=== PATIENT | male | born 1995 | race African-American/Black ===

== ENCOUNTER 2023-12-10 07:14 | Emergency (ER) | payer SELFPAY ==
[2023-12-10 07:18] VITALS: BP 132/74
--- NOTE | 2023-12-10 08:25 | ED.GENMED ---
History of Present Illness
General
Chief Complaint: Skin Surface Trauma
Time Seen by Provider: 12/10/23 08:24
Travel History
Have you had any contact with someone who has COVID-19?: No
Do you have any symptoms of coronavirus? Fever > 100 degrees, chills, cough, shortness of breath, sore throat, loss of taste or smell, muscle aches, or headache?: No
History of Present Illness
History of Present Illness:
HPI: Patient presents due to concerns of pain and swelling at the right fourth digit. The symptoms started yesterday. He has had similar episode in the past and states that he had a needle drainage and was placed on Bactrim which successfully
helped. He denies any systemic symptoms.
EXAM:
GENERAL: Well appearing in no distress
HEENT: Moist oral mucosa
CARDIOVASCULAR: No murmurs, borderline tachycardic heart rate (rate on my examination was 96), regular rhythm, No chest wall tenderness
NEUROLOGIC: Excellent strength all extremities, no coordination deficits
PSYCHIATRIC: Appropriate mental status, normal insight and judgement
EXTREMITIES: At the right fourth digit, there is evidence of paronychia, there is also questionable evidence of onychomycosis over the nail itself, there is no suggestion for flexor tenosynovitis
SKIN: See above
TIME OF INITIAL ENCOUNTER: 8:30 AM
NUMBER AND COMPLEXITY OF PROBLEMS ADDRESSED AT THE ENCOUNTER
� Chronic conditions affecting care: Former smoker, asthma, has had VT
� Acute Exacerbation and/or Progression of Chronic Illness: This is an acute problem but has had similar episode in the past
� Differential Diagnosis includes: Paronychia, flexor tenosynovitis, cellulitis
AMOUNT AND/OR COMPLEXITY OF DATA TO BE REVIEWED AND ANALYZED
� I performed an independent evaluation of and my interpretation is:
EKG:
CT:
X-rays:
Laboratory Studies:
Other:
� Review of other/old records: I reviewed records, I reviewed labs from August 2022�at that time leukocytosis was noted
� Clinical information was obtained by an independent historian: None needed
� Prescriptions/Medications Considered but not given:
� Further testing considered but not performed: No indication for imaging studies at this time
RISK OF COMPLICATIONS AND/OR MORBIDITY OR MORTALITY OF PATIENT MANAGEMENT
� Social determinants of health affecting care: At home, no longer smokes.
� Discussion with other providers:
� Escalation of care including admission/observation vs risk of discharge considered: We performed incision with scalpel for paronychia without much success but then he also told me he has had a needle aspiration from the dorsal
aspect�we tried this also with no significant amount of pus. I recommended soaks and I also prescribed antibiotics. Prescribed Bactrim as he has responded to this well in the past.
Past History
Past History
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
ED Past Surgical History: Cardiac (VT ablation)
Social History
Tobacco: Smoker
Alcohol: Occasional
Drug: Marijuana and Narcotics
Personal: Single
Living: with family
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
Family History
Family History: Other (Noncontributory)
Phy Exam
Physical Exam
Physical Exam:
See HPI
Course
Orders/Labs/Results
Orders:
Orders
12/10/23 08:42
Sulfamethox./Trimethoprim Ds [Bactrim Ds 800 mg/160 mg] 1 tablet PO NOW STA
Vital Signs
Pulse: 96
Initial and Last Documented VS:
Initial Vital Signs
Temp Pulse Resp BP Pulse Ox
97.9 F 127 18 132/74 98
12/10/23 07:18 12/10/23 07:18 12/10/23 07:18 12/10/23 07:18 12/10/23 07:18
Last Documented Vital Signs
Temp Pulse Resp BP Pulse Ox
97.9 F 96 18 132/74 98
12/10/23 07:18 12/10/23 08:47 12/10/23 07:18 12/10/23 07:18 12/10/23 07:18
*Critical Care Note
Total Time (30-74mins, 75-104mins- exclusive of procedures): Not Applicable
ED Attending Note
-
Portions of this chart may have been created with voice recognition software.� Occasional wrong word or��sound alike� substitutions may have occurred due to the inherent limitations of voice recognition software.
Discharge Plan
Departure
Patient Disposition: Home (Routine Discharge)
Date of Disposition: 12/10/23
Time of Disposition: 08:43
Patient with high blood pressure during this ER visit?: Yes
Discharge Problem:
Paronychia
Instructions: Paronychia ED
Prescriptions:
New
sulfamethoxazole-trimethoprim [Bactrim DS] 800-160 mg tablet
1 tab PO BID Qty: 14 0RF
No Action
Epidiolex 1 UNIT solution
1 unit PO PRN PRN (Reason: medical)
pantoprazole [Protonix] 40 mg tablet,delayed release (DR/EC)
40 mg PO DAILY Qty: 30 0RF
penicillin V potassium 500 mg tablet
500 mg PO QID 7 Days Qty: 28 0RF
potassium chloride 10 mEq tablet extended release
10 meq PO BID Qty: 10 0RF
Activity Restrictions/Additional Instructions:
Your symptoms appear to be related to paronychia. We did make openings to help allow pus to come out later. I sent a prescription for Bactrim to your pharmacy. Return here if worse.
Interventions
Interventions:
*Risk Screen - Suicide Last Done: 12/10/23 07:18
*Neglect/Abuse Screening Last Done: 12/10/23 07:18
*ED COVID-19 Vaccine History Last Done: 12/10/23 07:18
Discharge Date and Time
Print Language: WOLOF
[2023-12-10] MEDS: BACTRIM DS 800 MG/160 MG 1 TABLET PO (09:23)
[2023-12-10] MEDS: MOTRIN 600 MG PO (09:27)
[2023-12-10 09:29] VITALS: BP 120/71
== END 2023-12-10 09:30 | disposition home or self-care (01) ==
LOC: EMR 07:14
PROVIDERS: EMERGENCY PHYSICIAN Emergency Medicine
DX: L03.011 Cellulitis of right finger (principal); F17.200 Nicotine dependence, unspecified, uncomplicated; R03.0 Elevated blood-pressure reading, without diagnosis of hypertension
CPT/HCPCS: 99283

== ENCOUNTER 2024-10-04 22:04 | Emergency (ER) | payer OTHER, SELFPAY ==
[2024-10-04 22:07] VITALS: BP 116/78
--- NOTE | 2024-10-05 00:32 | ED.GENMED ---
History of Present Illness
General
Chief Complaint: Musculo-Skeletal Complaint
Source: patient and previous hospital records
Exam Limitations: none
Time Seen by Provider: 10/05/24 00:04
Nursing documentation reviewed up to this point in time: agreed with
History of Present Illness
History of Present Illness:
This is a 29-year-old homeless gentleman who has walked into the ED with complaints of right ankle pain. Admits to 'running around a lot today' but denies insightful injury. He denies twisting, denies fall. He does admit to wearing new hiking
boots. He denies weakness nor numbness. Has not taken anything for discomfort.
According to nursing staff, patient often visits the ED waiting room to sleep, rarely requesting ED evaluation.
Upon review of records, patient evaluated in this ED June 2023 for very similar right ankle pain, at that time after a mild twisting injury. Exam was unremarkable. Was provided ibuprofen. No imaging required.
Past History
Past History
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
ED Past Surgical History: Cardiac (VT ablation)
Social History
Tobacco: Smoker
Alcohol: Occasional
Drug: Marijuana and Narcotics
Personal: Single
Living: with family
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
Family History
Family History: Other (Noncontributory)
Phy Exam
Physical Exam
Physical Exam:
PHYSICAL EXAMINATION:
General: 29-year-old male appears his stated age, sleeping on exam stretcher. Awakens easily but readily falls asleep multiple times during initial evaluation. Overall appears in no acute distress.
Neuro: alert and oriented. no focal neurological deficits. Gait is blas and steady without limp
Psychiatric: Preferably sleeps. Once awake cooperative.
Musculoskeletal: [Right ankle without soft tissue swelling, no appreciable tenderness, full range of motion without difficulty nor pain. No tenderness to the foot. Peripheral pulses are full and equal bilaterally.
Sensation and strength intact. There is no tenderness to the lower leg nor knee. Gait is blas and steady.]
Course
Orders/Labs/Results
Orders:
Orders
10/05/24 00:32
Ibuprofen [Motrin] 600 mg PO NOW STA
Vital Signs
Initial and Last Documented VS:
Initial Vital Signs
Temp Pulse Resp BP Pulse Ox
98.2 F 105 16 116/78 99
10/04/24 22:07 10/04/24 22:07 10/04/24 22:07 10/04/24 22:07 10/04/24 22:07
Last Documented Vital Signs
Temp Pulse Resp BP Pulse Ox
98.2 F 105 16 116/78 99
10/04/24 22:07 10/04/24 22:07 10/04/24 22:07 10/04/24 22:07 10/04/24 22:07
MDM/Problems Addressed
Differential Diagnosis Includes:
Patient presents with right ankle pain, admits to significant walking today but denies injury.
Overall exam is benign without appreciable tenderness to palpation, no soft tissue swelling. He is wearing newer appearing hiking boots, laced and tied somewhat tight around his ankle. This could certainly be a cause for his ankle discomfort and
recommend he loosen the laces.
Will treat conservatively with a dose of ibuprofen. At this point no indication for imaging.
Recommend prompt follow-up with PCP for recheck.
Concern for potential housing instability. Patient reportedly resides with his father nearby.
*Pulse Oximetry
Patient hypoxic: no
*Critical Care Note
Total Time (30-74mins, 75-104mins- exclusive of procedures): Not Applicable
ED Attending Note
-
Portions of this chart may have been created with voice recognition software.� Occasional wrong word or��sound alike� substitutions may have occurred due to the inherent limitations of voice recognition software.
Discharge Plan
Departure
Patient Disposition: Home (Routine Discharge)
Date of Disposition: 10/05/24
Time of Disposition: 00:32
Patient with high blood pressure during this ER visit?: No
Condition: Good
Discharge Problem:
Mild sprain of right ankle
Instructions: Ankle sprain - ED discharge instructions
Prescriptions:
No Action
Epidiolex 1 UNIT solution
1 unit PO PRN PRN (Reason: medical)
pantoprazole [Protonix] 40 mg tablet,delayed release (DR/EC)
40 mg PO DAILY Qty: 30 0RF
penicillin V potassium 500 mg tablet
500 mg PO QID 7 Days Qty: 28 0RF
potassium chloride 10 mEq tablet extended release
10 meq PO BID Qty: 10 0RF
sulfamethoxazole-trimethoprim [Bactrim DS] 800-160 mg tablet
1 tab PO BID Qty: 14 0RF
Referrals:
Nii Olivia MD [Family Provider] - Call in 1-3 days for appt
Interventions
Interventions:
*Risk Screen - Suicide Last Done: 10/04/24 22:07
*General Assessment Last Done: 10/04/24 22:07
*Neglect/Abuse Screening Last Done: 10/04/24 22:07
*ED COVID-19 Vaccine History Last Done: 10/04/24 22:07
Discharge Date and Time
Print Language: BELIZEAN
[2024-10-05] MEDS: MOTRIN 600 MG PO (02:04)
[2024-10-05 02:06] VITALS: BP 120/68
== END 2024-10-05 06:55 | disposition home or self-care (01) ==
LOC: EMR 22:04
PROVIDERS: EMERGENCY PHYSICIAN Emergency Medicine; FAMILY PHYSICIAN Internal Medicine
DX: S93.401A Sprain of unspecified ligament of right ankle, initial encounter (principal); X58.XXXA Exposure to other specified factors, initial encounter; Z59.00 Homelessness unspecified; F17.200 Nicotine dependence, unspecified, uncomplicated
CPT/HCPCS: 99283

== ENCOUNTER 2024-11-08 02:27 | Emergency (ER) | payer OTHER, SELFPAY ==
[2024-11-08 02:28] VITALS: BP 114/78
[2024-11-08 02:53] VITALS: BMI 23.0
--- NOTE | 2024-11-08 02:57 | ED.GENMED ---
History of Present Illness
General
Chief Complaint: Abdominal Symptoms
Source: patient
Exam Limitations: none
Time Seen by Provider: 11/08/24 02:32
Nursing documentation reviewed up to this point in time: agreed with
History of Present Illness
History of Present Illness:
2o-year-old male presents to the emergency department with acute on chronic right flank pain. He said that he thought he had some blood in the urine after drinking, beginning an hour ago. He states that his abdominal pain has resolved and he has
hematuria any longer. Patient reluctant to give a more detailed history.
Past History
Past History
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
ED Past Surgical History: Cardiac (VT ablation)
Social History
Tobacco: Smoker
Alcohol: Occasional
Drug: Marijuana and Narcotics
Personal: Single
Living: with family
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
Family History
Family History: Other (Noncontributory)
Review of Systems
Review of Systems
Allergies reviewed?: Yes
All Other Systems: ROS reviewed and negative except as documented in HPI and ROS
Constitutional: Reports no symptoms
EENT: Reports no symptoms
Respiratory: Reports no symptoms
Cardiac: Reports no symptoms
ABD/GI: Reports abdominal pain
: Reports flank pain and bleeding
Musculoskeletal: Reports no symptoms
Skin: Reports no symptoms
Neurological: Reports no symptoms
Endocrine: Reports no symptoms
Hematologic/Lymphatic: Reports no symptoms
Psychiatric: Reports no symptoms
Phy Exam
General Physical Exam
General Presentation: well appearing and no apparent distress
General Skin: warm and dry
General Habitus: normal
General Mental: alert
General Hydration: appears well hydrated
ENT Exam
ENT Exam: EOMI, pharynx normal, neck supple and normocephalic
Eye Exam
Eye Exam: PERRL, cornea clear and conjunctiva normal
Cardiovascular Exam
Cardiovascular Exam: regular rate/rhythm, no edema, no murmur and normal peripheral pulses
Pulmonary Exam
Pulmonary Exam: lungs clear, no respiratory distress, no rales, no crackles, no rhonchi, no stridor, no wheezing and no cough
Gastrointestinal Exam
Gastrointestinal Exam: normal bowel sounds, non tender, soft, no organomegaly, no pulsatile mass and non distended
Neurological Exam
Neurological Exam: alert, oriented x3, no motor deficits and speech normal
Musculoskeletal Exam
Musculoskeletal Exam: full ROM and no edema
Skin Exam
Skin Exam: normal color, warm/dry, no rash and no petechia
Psychiatric Exam
Psychiatric Exam: normal mood/affect
Course
Orders/Labs/Results
Orders:
Orders
11/08/24 04:30
Urinalysis Reflex To Culture Urgent
Date Specimen was Collected: 11/08/24
Time Specimen was Collected: 02:40
Urine Microscopic Reflex Cult Urgent
Urine Culture Urgent
SNEHA Source: U
Specimen Description:
Date Specimen was Collected: 11/08/24
Time Specimen was Collected: 02:40
Abnormal Lab Results
11/08/24
04:30
Ur Occult Blood Reflex 2+ A
(Negative)
Leukocyte Esterase Rfl 1+ A
(Negative)
Urine RBC 3-6 A /HPF
(0-2)
Urine Bacteria (Reflex) Few A
(Negative)
Vital Signs
Initial and Last Documented VS:
Initial Vital Signs
Temp Pulse Resp BP Pulse Ox
97.4 F 84 20 114/78 98
11/08/24 02:28 11/08/24 02:28 11/08/24 02:28 11/08/24 02:28 11/08/24 02:28
Last Documented Vital Signs
Temp Pulse Resp BP Pulse Ox
97.4 F 73 20 99/62 100
11/08/24 02:28 11/08/24 05:17 11/08/24 02:28 11/08/24 05:17 11/08/24 05:17
*Critical Care Note
Total Time (30-74mins, 75-104mins- exclusive of procedures): Not Applicable
Update Note
Update Note:
Patient still has not given us a urine sample.
Patient gave a urine sample and it showed some hematuria. Patient refused to get an ultrasound or an x-ray
Patient wishes to be discharged.
ED Attending Note
-
Portions of this chart may have been created with voice recognition software.� Occasional wrong word or��sound alike� substitutions may have occurred due to the inherent limitations of voice recognition software.
Discharge Plan
Departure
Patient Disposition: Against Medical Advice
Date of Disposition: 11/08/24
Time of Disposition: 05:17
Discharge Problem:
Hematuria
Instructions: Clear Liquid Diet, Abdominal pain in adults - Discharge instructions
Prescriptions:
No Action
Epidiolex 1 UNIT solution
1 unit PO PRN PRN (Reason: medical)
Risperdal
buspirone
Referrals:
Nii Olivia MD [Family Provider] -
Interventions
Interventions:
*Risk Screen - Suicide Last Done: 11/08/24 02:28
*General Assessment Last Done: 11/08/24 02:54
*Neglect/Abuse Screening Last Done: 11/08/24 02:28
*ED- Fall Risk Assessment Last Done: 11/08/24 02:54
*ED COVID-19 Vaccine History Last Done: 11/08/24 05:02
*Nursing Disposition Last Done: 11/08/24 05:25
RL-Eabgrv-Phtlljmouh Assessment Last Done: 11/08/24 02:54
Discharge Date and Time
Discharge Date/Time: 11/08/24 05:25
Print Language: KINYARWANDA
[2024-11-08 04:41] LABS: Urine Albumin Negative (Neg - Trace); Urine Bilirubin Negative (Negative); Urine Character Clear (Clear); Urine Color Yellow; Urine Glucose Negative (Negative); Urine Ketone Negative (Negative); Urine Leukocyte 1+ (Negative); Urine Nitrite Negative (Negative); Urine Occult Blood 2+ (Negative); Urine Urobilinogen Negative (Neg - 1+)
[2024-11-08 05:17] VITALS: BP 99/62
[2024-11-08 06:14] LABS: Urine Bacteria Few (Negative); Urine Squamous Cell 0-2 /LPF (Few); Urine White Cell 0-2 /HPF (0-5)
== END 2024-11-08 05:25 | disposition left against medical advice (07) ==
LOC: EMR 02:27
PROVIDERS: EMERGENCY PHYSICIAN Student in an Organized Health Care Education/Training Program; FAMILY PHYSICIAN Internal Medicine
DX: R31.9 Hematuria, unspecified (principal); R10.9 Unspecified abdominal pain; I47.20 Ventricular tachycardia, unspecified; F41.9 Anxiety disorder, unspecified; J45.909 Unspecified asthma, uncomplicated; K90.0 Celiac disease; F17.200 Nicotine dependence, unspecified, uncomplicated; Z59.00 Homelessness unspecified; Z79.899 Other long term (current) drug therapy; Z91.013 Allergy to seafood
CPT/HCPCS: 99283; 81003; 81015; 87086

== ENCOUNTER 2024-12-05 11:00 | Emergency (ER) | payer OTHER, SELFPAY ==
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
[2024-12-05 14:32] LABS: Amphetamines Negative (Negative); Barbiturates Negative (Negative); Benzodiazepines Negative (Negative); Buprenorphine Negative (Negative); Cocaine Negative (Negative); Marijuana Negative (Negative); Methadone Negative (Negative); Methamphetamines Negative (Negative); Opiates Negative (Negative); Phencyclidine Negative (Negative); Tricyclic Antidepressants Negative (Negative)
--- NOTE | 2024-12-05 19:50 | EDRN ---
Report received, patient is suppose to be leaving around 2345 per crisis, went in to attempt to get vital signs, patient states 'you'd have to tie me down and beat me up, I refuse to get vital signs' left patient alone, patient remains in safe
environment and security outside room.
--- NOTE | 2024-12-05 22:52 | EDRN ---
Patient asking for a soda, provided to patient in a Styrofoam cup, patient being cooperative, security remains outside room and safe environment maintained, crisis informed us there has been a delay on tack picker, no new time at this time
--- NOTE | 2024-12-06 01:58 | EDRN ---
Transport here to orange picker patient, patient a little reluctant at first however did get on their stretcher and go with the crew
== END 2024-12-06 01:59 ==
LOC: EMR 11:00
PROVIDERS: Psychiatry & Neurology Psychiatry; EMERGENCY PHYSICIAN Emergency Medicine
DX: F23 Brief psychotic disorder (principal); I47.20 Ventricular tachycardia, unspecified; J45.909 Unspecified asthma, uncomplicated; F41.9 Anxiety disorder, unspecified; K90.0 Celiac disease; F17.200 Nicotine dependence, unspecified, uncomplicated; Z65.3 Problems related to other legal circumstances; Z80.3 Family history of malignant neoplasm of breast; Z59.00 Homelessness unspecified
CPT/HCPCS: 99285; 80306

== ENCOUNTER 2024-12-26 09:47 | Emergency (ER) | payer OTHER, SELFPAY ==
[2024-12-26 09:53] VITALS: BP 116/77
[2024-12-26 10:18] VITALS: BP 119/77
[2024-12-26 10:20] VITALS: BMI 23.8
--- NOTE | 2024-12-26 10:47 | ED.GENMED ---
History of Present Illness
General
Chief Complaint: Fever
Source: patient
Exam Limitations: none
Time Seen by Provider: 12/26/24 10:34
Nursing documentation reviewed up to this point in time: agreed with
History of Present Illness
History of Present Illness:
29-year-old male presents to the emergency department due to body aches and chills for the past month. He has been bit by a tick 3 times. He states he brought 1 tick to the hospital. He works in [place] and has been camping a lot.
Past History
Past History
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
ED Past Surgical History: Cardiac (VT ablation)
Social History
Tobacco: Smoker
Alcohol: Occasional
Drug: Marijuana and Narcotics
Personal: Single
Living: with family
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
Family History
Family History: Other (Noncontributory)
Review of Systems
Review of Systems
Allergies reviewed?: Yes
All Other Systems: Not applicable
Constitutional: Reports chills
EENT: Reports no symptoms
Respiratory: Reports no symptoms
Cardiac: Reports no symptoms
ABD/GI: Reports no symptoms
: Reports no symptoms
Musculoskeletal: Reports no symptoms
Skin: Reports rash (Bull's-eye rash)
Neurological: Reports no symptoms
Endocrine: Reports no symptoms
Hematologic/Lymphatic: Reports no symptoms
Psychiatric: Reports no symptoms
Phy Exam
Physical Exam
Physical Exam:
Physical Exam
General: no apparent distress, not acutely ill
Neck: supple. no meningeal signs. normal posterior pharynx
Heart: s1/s2 regular rate and rhythm, no murmur. equal radial
pulses.
HEENT: Pupils equal round reactive to light, EOMI
Lungs: no acute respiratory distress. clear bilaterally
Abdomen: normal bowel sounds. not tender. no CVAT
Neuro: alert and oriented. no focal neurological deficits cranial nerves II through XII intact
Skin: no rash
Psychiatric: well kept. interactive and cooperative
Extremities: no edema. no calf tenderness. negative homans. good distal pulses
Course
Orders/Labs/Results
Orders:
Orders
12/26/24 10:44
Babesia microti Abs, IgG/IgM [S] Urgent
Ehrlichia chaffeensis Ab Panel [S] Urgent
Lyme Progressive Urgent
[facility] Spotted Fever IgG&IgM [S] Urgent
Vital Signs
Initial and Last Documented VS:
Initial Vital Signs
Temp Pulse Resp BP Pulse Ox
98 F 102 16 116/77 98
12/26/24 09:53 12/26/24 09:53 12/26/24 09:53 12/26/24 09:53 12/26/24 09:53
Last Documented Vital Signs
Temp Pulse Resp BP Pulse Ox
98.7 F 83 18 119/77 100
12/26/24 10:18 12/26/24 10:18 12/26/24 10:18 12/26/24 10:18 12/26/24 10:18
MDM/Problems Addressed
Differential Diagnosis Includes:
Lyme disease, [place] spotted fever
MDM/Problems Addressed:
29-year-old male with multiple tick bites, and fevers and chills. Patient notes he had a bull's-eye rash that has dissipated. Will treat with amoxicillin, due to patient's frequent camping and working outdoors.
*Pulse Oximetry
Patient hypoxic: no
*Critical Care Note
Total Time (30-74mins, 75-104mins- exclusive of procedures): Not Applicable
Patient Management
Social determinants of health affecting care: Living situation and Substance abuse
Escalation/DeEscalation of care consider admission/obs:
Admit not indicated
ED Attending Note
-
Portions of this chart may have been created with voice recognition software.� Occasional wrong word or��sound alike� substitutions may have occurred due to the inherent limitations of voice recognition software.
Discharge Plan
Departure
Patient Disposition: Home (Routine Discharge)
Date of Disposition: 12/26/24
Time of Disposition: 10:54
Patient with high blood pressure during this ER visit?: No
Condition: Good
Discharge Problem:
Tick bite
Instructions: Lyme Disease Test, Insect bites and stings - ED discharge instructions
Prescriptions:
New
amoxicillin 500 mg capsule
500 mg PO TID Qty: 21 0RF
No Action
Epidiolex 1 UNIT solution
1 unit PO PRN PRN (Reason: medical)
Risperdal
buspirone
Referrals:
NONE,* [Family Provider] -
Activity Restrictions/Additional Instructions:
Follow up with primary care in 3-5 days. Return for any concerns.
Interventions
Interventions:
*Risk Screen - Suicide Last Done: 12/26/24 09:53
*General Assessment Last Done: 12/26/24 10:21
*Neglect/Abuse Screening Last Done: 12/26/24 09:53
*ED- Fall Risk Assessment Last Done: 12/26/24 10:21
*ED COVID-19 Vaccine History Last Done: 12/26/24 10:21
ED- Neurological Assessment Last Done: 12/26/24 10:24
ED-Skin Assessment Last Done: 12/26/24 10:24
Discharge Date and Time
Print Language: CITIZEN OF [place]
[2024-12-26] MEDS: AMOXIL 500 MG PO (11:05)
[2024-12-27 11:15] LABS: Lyme Antibody Screen, EIA Negative (Negative)
[2024-12-28 16:25] LABS: RMSF IgG Antibodies <1:64 (<1:64); RMSF IgM Antibodies <1:64 (<1:64)
[2024-12-29 03:18] LABS: Ehrlichia chaffeensis IgG Ab <1:64 (<1:64); Ehrlichia chaffeensis IgM Ab < 1:16 (< 1:16)
[2024-12-29 21:11] LABS: Babesia microti IgG < 1:16 (< 1:16); Babesia microti IgM <1:20 (<1:20)
== END 2024-12-26 11:59 | disposition home or self-care (01) ==
LOC: EMR 09:47
PROVIDERS: EMERGENCY PHYSICIAN Emergency Medicine
DX: T14.8XXA Other injury of unspecified body region, initial encounter (principal); W57.XXXA Bitten or stung by nonvenomous insect and other nonvenomous arthropods, initial encounter; J45.909 Unspecified asthma, uncomplicated; F17.200 Nicotine dependence, unspecified, uncomplicated
CPT/HCPCS: 99283; 86618; 86666; 86753; 86757

== ENCOUNTER 2025-01-01 07:44 | Emergency (ER) | payer OTHER, SELFPAY ==
[2025-01-01 07:46] VITALS: BP 148/80
[2025-01-01] MEDS: ATIVAN 2 MG IM (07:54)
[2025-01-01 07:58] LABS: % Basophils 0.3 % (0-2); % Eosinophils 0.1 % (0-6); % Immature Granulocytes 0.5 % (0-0.5); % Lymphocytes 9.9 % (20.5-51.1); % Monocytes 8.3 % (1.7-9.3); % Neutrophils 80.9 % (42.2-75.2); Absolute Immature Granulocytes 0.1 10^3/uL (0-0.05); Absolute Lymphocytes 1.4 10^3/uL (1.2-3.4); Absolute Monocytes 1.2 10^3/uL (0.1-0.6); Absolute Neutrophils 11.4 10^3/uL (1.4-6.5); Hematocrit 41.2 % (39.0-52.0); Hemoglobin 14.5 g/dL (13.0-18.0); Mean Corp Hgb Conc. 35.2 g/dL (33.0-37.0); Mean Corpuscular Hgb 30.5 pg (27.0-31.0); Mean Corpuscular Volume 86.7 fL (80.0-94.0); Mean Platelet Volume 9.5 fL (7.4-10.4); Nucleated Red Blood Cells % 0 % (-); Platelet Count 228 10^3/uL (130-400); Red Blood Cell Count 4.75 10^6/uL (4.70-6.10); Red Cell Dist. Width 12.9 % (11.5-14.5); White Blood Cell Count 14.1 10^3/uL (4.8-10.8)
[2025-01-01 08:11] LABS: AST (SGOT) 57 U/L (17-59); Albumin 5.4 g/dl (3.5-5.0); Alkaline Phosphatase 74 U/L (38-126); Blood Urea Nitrogen 25 mg/dl (9-20); Calcium 9.7 mg/dl (8.4-10.2); Carbon Dioxide 20 mmol/L (22-30); Chloride 100 mmol/L (98-107); Glucose 96 mg/dl (70-99); Sodium 135 mmol/L (135-145); Total Bilirubin 1.2 mg/dl (0.2-1.3); Total Protein 8.6 g/dl (6.3-8.2); eGFR > 60.00
[2025-01-01 08:12] LABS: Alcohol None Detected
--- NOTE | 2025-01-01 08:45 | ED.GENMED ---
History of Present Illness
General
Chief Complaint: Crisis Evaluation
Time Seen by Provider: 01/01/25 07:51
History of Present Illness
History of Present Illness:
29-year-old male with history of schizophrenia presenting for acute psychosis. Patient under 302. Patient had allegedly been brought to [facility] yesterday by father for concern of mental health issues. Patient had ran out of [facility], so 302
had been filed, held up by the delegate. Patient arrives by police, who escorted patient to the hospital. Patient very limited story on arrival, flight of ideas. History of psychotic behavior in the past, most recently at the beginning of December.
No additional history obtained at this time.
Past History
Past History
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
ED Past Surgical History: Cardiac (VT ablation)
Social History
Tobacco: Smoker
Alcohol: Occasional
Drug: Marijuana and Narcotics
Personal: Single
Living: with family
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
Family History
Family History: Other (Noncontributory)
Phy Exam
Physical Exam
Physical Exam:
General: Well-appearing, no clinical signs of dehydration, nontoxic and in no acute distress
HEENT: protecting airway
Neck: appears supple
CV: Normal heart rate
Resp: No accessory muscle use, no increased work of breathing
Abd: No distention
Extremities: No deformities, no swelling
Neuro: alert, no focal neurologic deficit
: deferred
Rectal: deferred
Psych: Agitated
Skin: Intact
Course
Orders/Labs/Results
Orders:
Orders
01/01/25 07:51
Urine Drug Abuse Screen Urgent
Lorazepam [Ativan] 2 mg IM NOW STA
01/01/25 07:52
Crisis Consult Urgent
Reason for Consult: 302
Alcohol Urgent
Complete Blood Count/With Diff Urgent
Comprehensive Metabolic Panel Urgent
Lorazepam [Ativan] 2 mg .ROUTE .STK-MED ONE
01/01/25 08:45
ED Special Safety Observation ONCE
Observation level: One to Two
Abnormal Lab Results
01/01/25
07:52
WBC 14.1 H 10^3/uL
(4.8-10.8)
Abs Immat Gran (auto) 0.1 H 10^3/uL
(0-0.05)
Absolute Neuts (auto) 11.4 H 10^3/uL
(1.4-6.5)
Absolute Monos (auto) 1.2 H 10^3/uL
(0.1-0.6)
Neutrophils % 80.9 H %
(42.2-75.2)
Lymphocytes % 9.9 L %
(20.5-51.1)
Carbon Dioxide 20 L mmol/L
(22-30)
BUN 25 H mg/dl
(9-20)
Total Protein 8.6 H g/dl
(6.3-8.2)
Albumin 5.4 H g/dl
(3.5-5.0)
01/01/25 07:52
01/01/25 07:52
Vital Signs
Initial and Last Documented VS:
Initial Vital Signs
Temp Pulse Resp BP Pulse Ox
98.1 F 110 18 148/80 100
01/01/25 07:46 01/01/25 07:46 01/01/25 07:46 01/01/25 07:46 01/01/25 07:46
Last Documented Vital Signs
Temp Pulse Resp BP Pulse Ox
98.1 F 110 18 148/80 100
01/01/25 07:46 01/01/25 07:46 01/01/25 07:46 01/01/25 07:46 01/01/25 07:46
MDM/Problems Addressed
MDM/Problems Addressed:
29-year-old male with history of schizophrenia presenting for concern of acute psychosis, under 302. Vital signs significant for tachycardia, however patient agitated upon arrival.
On exam patient is in no acute distress, however does appear to be acutely psychotic, flight of ideas, tangential speech. Patient is under 302. Placed on one-to-one observation. Plan for screening laboratory analysis. Ativan administered for
agitation. Will continue to closely monitor
09:00 - Patient with elevated white count. Afebrile, nontoxic. Without concern for systemic infection
11:10 -302 upheld by telepsych. Plan for inpatient
13:00 -patient accepted to [facility], pending transportation at 6:30 PM
*Critical Care Note
Total Time (30-74mins, 75-104mins- exclusive of procedures): Not Applicable
ED Attending Note
-
Portions of this chart may have been created with voice recognition software.� Occasional wrong word or��sound alike� substitutions may have occurred due to the inherent limitations of voice recognition software.
Discharge Plan
Departure
Prescriptions:
No Action
Epidiolex 1 UNIT solution
1 unit PO PRN PRN (Reason: medical)
Risperdal
buspirone
amoxicillin 500 mg capsule
500 mg PO TID Qty: 21 0RF
Referrals:
Nii Olivia MD [Primary Care Provider, Internal Medicine]
Interventions
Interventions:
*Risk Screen - Suicide Last Done: 01/01/25 07:46
*General Assessment Last Done: 01/01/25 07:46
*Neglect/Abuse Screening Last Done: 01/01/25 07:46
ED-Psychological Assessment Last Done: 01/01/25 07:54
Discharge Date and Time
Print Language: DOMINICAN
[2025-01-01 09:11] LABS: ALT (SGPT) 38 U/L (0-50)
[2025-01-01 15:26] VITALS: BP 109/67
[2025-01-01 15:57] LABS: Amphetamines Positive (Negative); Barbiturates Negative (Negative); Benzodiazepines Positive (Negative); Buprenorphine Negative (Negative); Cocaine Negative (Negative); Marijuana Negative (Negative); Methadone Negative (Negative); Methamphetamines Positive (Negative); Opiates Negative (Negative); Phencyclidine Negative (Negative); Tricyclic Antidepressants Negative (Negative)
[2025-01-01 16:13] LABS: Fentanyl, Urine Negative (Negative)
== END 2025-01-01 19:07 ==
LOC: EMR 07:44
PROVIDERS: EMERGENCY PHYSICIAN Student in an Organized Health Care Education/Training Program; PRIMARYCARE PHYSICIAN Internal Medicine
DX: F23 Brief psychotic disorder (principal); I47.20 Ventricular tachycardia, unspecified; J45.909 Unspecified asthma, uncomplicated; F41.9 Anxiety disorder, unspecified; K90.0 Celiac disease; F17.200 Nicotine dependence, unspecified, uncomplicated
CPT/HCPCS: 99285; 96372; 80053; 80306; 80307; 82077; 85025

== ENCOUNTER 2025-04-08 15:02 | Emergency (ER) | payer OTHER, SELFPAY ==
[2025-04-08 15:04] VITALS: BP 119/67
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
== END 2025-04-08 15:43 | disposition home or self-care (01) ==
LOC: EMR 15:02
PROVIDERS: EMERGENCY PHYSICIAN Emergency Medicine
DX: S01.411A Laceration without foreign body of right cheek and temporomandibular area, initial encounter (principal); Y04.0XXA Assault by unarmed brawl or fight, initial encounter; Y92.009 Unspecified place in unspecified non-institutional (private) residence as the place of occurrence of the external cause; F17.200 Nicotine dependence, unspecified, uncomplicated; J45.909 Unspecified asthma, uncomplicated
CPT/HCPCS: 12011; 99282